=== PATIENT | female | born 1995 | race Caucasian/White ===

== ENCOUNTER 2024-02-17 18:01 | Emergency (ER) | payer OTHER, SELFPAY ==
[2024-02-17 18:29] VITALS: BP 125/81; PULSE 106; TEMP 36.8; O2SAT 97; BMI 22.1
--- NOTE | 2024-02-17 19:08 | US_ITS ---
[facility] [id number] Patient Name: DOE FERNANDEZ MRN: [id number] date: 1995 Sex: F Assigned Patient Location: ER Current Patient Location: ED.MAIN Accession/Order Number: [id number] Exam Date: 02/17/2024 19:30 Report Date: 02/17/2024 22:31 At the request of: CHANTELLE OWENS Procedure: US pelvis transvaginal EXAM: US pelvis transvaginal HISTORY: retained products COMPARISON: None. TECHNIQUE: Transvaginal and transabdominal real-time grayscale and color Doppler imaging with pulsed duplex sonography was performed. FINDINGS: UTERUS: Measures 10.1 centimeters in length. Anteverted ENDOMETRIUM: There is a heterogeneous rounded component of the endometrium which measures which measures 3.6 by 2.5 by 3.4 centimeters. Remainder of endometrium appears mildly thickened and hypervascular. OVARIES: The right ovary demonstrates a cyst measuring up to 3.8 centimeters. Right ovary measures 4.2 by 4.7 by 4.3 cm. Left ovary measures 2.2 by 1.6 by 1.9 cm. Ovaries demonstrate color Doppler flow and appropriate spectral waveforms. MISCELLANEOUS: No significant free fluid. US/US pelvis transvaginal IMPRESSION: Findings suggesting retained products of conception. Electronically authenticated by: CHRIS MICHAELS Date: 02/17/2024 22:31
[2024-02-17 19:53] LABS: Basophils Absolute Auto 0.1 10^3/uL (0.0-0.1); Basophils Percent Auto 0.8 % (0.2-2.0); Eosinophils Absolute Auto 0.2 10^3/uL (0.0-0.7); Eosinophils Percent Auto 2.7 % (0.9-7.0); Hematocrit 36.4 % (36.0-48.0); Hemoglobin 12.3 g/dL (12.0-16.0); Immature Granulocytes Abs Auto 0.02 10^3/uL (0.00-0.03); Immature Granulocytes Pct Auto 0.3 % (0.0-0.5); Lymphocytes Absolute Auto 3.2 10^3/uL (1.2-3.8); Lymphocytes Percent Auto 40.1 % (20.5-60.0); Mean Corpuscular HGB Conc 33.8 g/dL (29.9-35.2); Mean Corpuscular Hemoglobin 32.5 pg (26.7-34.0); Mean Platelet Volume 11.1 fL (9.5-13.5); Monocytes Absolute Auto 0.5 10^3/uL (0.3-0.8); Monocytes Percent Auto 6.7 % (1.7-12.0); Neutrophils Absolute Auto 3.9 10^3/uL (1.4-6.5); Neutrophils Percent Auto 49.4 % (43.0-75.0); Platelet Count 259 10^3/uL (150-450); Red Blood Count 3.79 10^6/uL (4.20-5.40); Red Cell Distribution Width 12.6 % (11.0-15.0); White Blood Count 7.9 10^3/uL (4.0-11.0)
[2024-02-17 20:09] LABS: Anion Gap 16.9; BUN Creatinine Ratio 18.9; Calcium 8.4 mg/dL (8.5-10.1); Carbon Dioxide 21.9 mmol/L (21.0-32.0); Chloride 106 mmol/L (98-107); Estimated GFR (African America >60 (>=60 mL/min/1.73m^2); Estimated GFR (Non-African Ame >60 (>=60 mL/min/1.73m^2); Glucose 97 mg/dL (74-106); Potassium 3.8 mmol/L (3.5-5.1); Sodium 141 mmol/L (136-145)
[2024-02-17 20:17] LABS: Prothrombin Time 10.6 sec (9.0-11.6)
--- NOTE | 2024-02-17 21:21 | ED_ITS ---
Documented by User: Florecita Mcfarland 02/17/24 21:58 HPI - General Chief complaint: Vaginal Bleeding Stated complaint: BLEEDING Time Seen by Provider: 02/17/24 18:08 Source: patient Mode of arrival: walk-in History of Present Illness HPI Narrative: 88-year-old female who is approximately 3 weeks presents today with vaginal bleeding. Patient states she has had small amount of bleeding since given . She had a vaginal with episiotomy. She states she had 20 sutures she states. She states today she passed a large clot of blood and has been bleeding. She is alert and oriented. No acute distress. No fevers. Blood pressure is within normal limits MD Complaint: Reports vaginal bleeding Related Data Home Medications ?Medication ?Instructions ?Recorded ?Confirmed docusate sodium 100 mg capsule mg PO 02/17/24 (Stool Softener) duloxetine 60 mg capsule,delayed mg PO 02/17/24 release ferrous sulfate 325 mg (65 mg mg 02/17/24 iron) tablet hydroxyzine pamoate 25 mg capsule mg 02/17/24 vits no.130-ferrous fum tab 02/17/24 27 mg iron-folic acid 800 mcg tablet ( Vitamin) Allergies Allergy/AdvReac Type Severity Reaction Status Date / Time No Known Drug Allergies Allergy Verified 02/17/24 18:29 Review of Systems ROS Narrative All Systems are negative except as noted/marked.All systems reviewed and otherwise negative PFSH PFSH Social History Little interest or pleasure in doing things: not at all Feeling down, depressed, or hopeless: several days Exam Narrative Exam Narrative: Nurses note and vital signs reviewed and patient is not hypoxic. General: The patient appears well and in no apparent distress. Patient is re sting comfortably on cart. Skin: Warm, dry, no pallor noted. There is no rash noted. Head: Normocephalic, atraumatic Eye: Normal conjunctiva, no drainage, EOMI. PERRL Ears, Nose, Mouth, and Throat: oral mucosa is moist. Nares patent. Mouth without vesicles. Ear canals patent. Tm's without Erythema Cardiovascular: Regular Rate and Rhythm Respiratory: Patient is in no distress, no accessory muscle use, lungs are clear to auscultation, no wheezing, rales or rhonchi Back: non-tender, no CVA tenderness bilaterally to percussion. GI: Normal bowel sounds, no tenderness to palpation, no masses appreciated. No rebound, guarding, or rigidity noted. gu: Vaginal bleeding noted on exam, no clotting noted, no profuse bleeding Musculoskeletal: The patient has no evidence of calf tenderness, no pitting edema, symmetrical pulses noted bilaterally Neurological: A&O x4, normal speech Psychiatric: Cooperative Constitutional Vital Signs, click to edit/add: Last Vital Signs Temp 97.9 F 02/17/24 22:05 Pulse 93 H 02/17/24 22:05 Resp 16 02/17/24 22:05 BP 97/71 02/17/24 22:05 Pulse Ox 100 02/17/24 22:05 O2 Del Method Room Air 02/17/24 22:05 Course Vital Signs Vital signs: Vital Signs Temperature 98.3 F 02/17/24 18:29 Pulse Rate 106 H 02/17/24 18:29 Respiratory Rate 16 02/17/24 18:29 Blood Pressure 125/81 02/17/24 18:29 Pulse Oximetry 97 02/17/24 18:29 Oxygen Delivery Method Room Air 02/17/24 18:29 Temperature 97.9 F 02/17/24 22:05 Pulse Rate 93 H 02/17/24 22:05 Respiratory Rate 16 02/17/24 22:05 Blood Pressure 97/71 02/17/24 22:05 Pulse Oximetry 100 02/17/24 22:05 Oxygen Delivery Method Room Air 02/17/24 22:05 MDM - OB/Uterine Contractions MDM Narrative Medical decision making narrative: 28-year-old female present here chief complaint abdominal cramping and bleeding. She is 3 weeks . Vaginal exam is within normal limits small amount of bleeding is noted no profuse pulsatile bleeding or clotting CBC and BMP within normal limits. Ultrasound is currently pending for retained products. Transition of care to Dr. Bernal [id number]. pt comfortable at this time Medical Records Attestation: I reviewed the patient's medical records. Lab Data Attestation: I reviewed the patient's lab results. Labs: Lab Results 02/17/24 Range/Units 19:25 WBC 7.9 (4.0-11.0) 10^3/uL RBC 3.79 L (4.20-5.40) 10^6/uL Hgb 12.3 (12.0-16.0) g/dL Hct 36.4 (36.0-48.0) % MCV 96.0 (81.0-99.0) fL MCH 32.5 (26.7-34.0) pg MCHC 33.8 (29.9-35.2) g/dL RDW 12.6 (11.0-15.0) % Plt Count 259 (150-450) 10^3/uL MPV 11.1 (9.5-13.5) fL Neut % (Auto) 49.4 (43.0-75.0) % Lymph % (Auto) 40.1 (20.5-60.0) % [place] % (Auto) 6.7 (1.7-12.0) % Eos % (Auto) 2.7 (0.9-7.0) % Baso % (Auto) 0.8 (0.2-2.0) % Neut # (Auto) 3.9 (1.4-6.5) 10^3/uL Lymph # (Auto) 3.2 (1.2-3.8) 10^3/uL [place] # (Auto) 0.5 (0.3-0.8) 10^3/uL Eos # (Auto) 0.2 (0.0-0.7) 10^3/uL Baso # (Auto) 0.1 (0.0-0.1) 10^3/uL Abs Immat Gran (auto) 0.02 (0.00-0.03) 10^3/uL Imm/Tot Granulo (auto) 0.3 (0.0-0.5) % PT 10.6 (9.0-11.6) sec INR 1.00 Sodium 141 (136-145) mmol/L Potassium 3.8 (3.5-5.1) mmol/L Chloride 106 (98-107) mmol/L Carbon Dioxide 21.9 (21.0-32.0) mmol/L Anion Gap 16.9 BUN 14.0 (7.0-18.0) mg/dL Creatinine 0.74 (0.55-1.02) mg/dL Est GFR ( Amer) >60 (>=60 mL/min/1.73m^2) Est GFR (Non-Af Amer) >60 (>=60 mL/min/1.73m^2) BUN/Creatinine Ratio 18.9 Glucose 97 (74-106) mg/dL Calcium 8.4 L (8.5-10.1) mg/dL Discharge Plan Discharge Chief Complaint: Vaginal Bleeding Clinical Impression: bleeding, Retained products of conception Patient Disposition: Home, Self-Care Condition: Good Prescriptions / Home Meds: No Action ferrous sulfate 325 mg (65 mg iron) tablet docusate sodium [Stool Softener] 100 mg capsule PO hydroxyzine pamoate 25 mg capsule duloxetine 60 mg capsule,delayed release(DR/EC) PO Vitamin 27 mg iron- 800 mcg tablet Print Language: Portuguese Instructions: Bleeding (ED) Additional Instructions: tile picker prescription called in by your outreach associate tomorrow and follow up with her next week Referrals: [facility] [Primary Care Provider] - 1 week Documented by User: Hesham Bernal MD 02/17/24 23:36 HPI - General Chief complaint: Vaginal Bleeding Stated complaint: BLEEDING Time Seen by Provider: 02/17/24 18:08 Related Data Home Medications ?Medication ?Instructions ?Recorded ?Confirmed docusate sodium 100 mg capsule mg PO 02/17/24 (Stool Softener) duloxetine 60 mg capsule,delayed mg PO 02/17/24 release ferrous sulfate 325 mg (65 mg mg 02/17/24 iron) tablet hydroxyzine pamoate 25 mg capsule mg 02/17/24 vits no.130-ferrous fum tab 02/17/24 27 mg iron-folic acid 800 mcg tablet ( Vitamin) Allergies Allergy/AdvReac Type Severity Reaction Status Date / Time No Known Drug Allergies Allergy Verified 02/17/24 18:29 PFSH PFSH Social History Little interest or pleasure in doing things: not at all Feeling down, depressed, or hopeless: several days Exam Constitutional Vital Signs, click to edit/add: Last Vital Signs Temp 97.9 F 02/17/24 22:05 Pulse 93 H 02/17/24 22:05 Resp 16 02/17/24 22:05 BP 97/71 02/17/24 22:05 Pulse Ox 100 02/17/24 22:05 O2 Del Method Room Air 02/17/24 22:05 Course Vital Signs Vital signs: Vital Signs Temperature 98.3 F 02/17/24 18:29 Pulse Rate 106 H 02/17/24 18:29 Respiratory Rate 16 02/17/24 18:29 Blood Pressure 125/81 02/17/24 18:29 Pulse Oximetry 97 02/17/24 18:29 Oxygen Delivery Method Room Air 02/17/24 18:29 Temperature 97.9 F 02/17/24 22:05 Pulse Rate 93 H 02/17/24 22:05 Respiratory Rate 16 02/17/24 22:05 Blood Pressure 97/71 02/17/24 22:05 Pulse Oximetry 100 02/17/24 22:05 Oxygen Delivery Method Room Air 02/17/24 22:05 MDM - OB/Uterine Contractions MDM Narrative Medical decision making narrative: 28-year-old female present here chief complaint abdominal cramping and bleeding. She is 3 weeks . Vaginal exam is within normal limits small amount of bleeding is noted no profuse pulsatile bleeding or clotting CBC and BMP within normal limits. Ultrasound is currently pending for retained products. Transition of care to Dr. Bernal [id number]. pt comfortable at this time care transferred. US pending. US returned with findings of retained products of conception. Discussed with patient outreach associate who recommended a dose of Methergine now and she will call in Cytotec for the patient to start tomorrow. Bleeding has stop. Patient informed of the plan and discharged home Lab Data Labs: Lab Results 02/17/24 Range/Units 19:25 WBC 7.9 (4.0-11.0) 10^3/uL RBC 3.79 L (4.20-5.40) 10^6/uL Hgb 12.3 (12.0-16.0) g/dL Hct 36.4 (36.0-48.0) % MCV 96.0 (81.0-99.0) fL MCH 32.5 (26.7-34.0) pg MCHC 33.8 (29.9-35.2) g/dL RDW 12.6 (11.0-15.0) % Plt Count 259 (150-450) 10^3/uL MPV 11.1 (9.5-13.5) fL Neut % (Auto) 49.4 (43.0-75.0) % Lymph % (Auto) 40.1 (20.5-60.0) % [place] % (Auto) 6.7 (1.7-12.0) % Eos % (Auto) 2.7 (0.9-7.0) % Baso % (Auto) 0.8 (0.2-2.0) % Neut # (Auto) 3.9 (1.4-6.5) 10^3/uL Lymph # (Auto) 3.2 (1.2-3.8) 10^3/uL [place] # (Auto) 0.5 (0.3-0.8) 10^3/uL Eos # (Auto) 0.2 (0.0-0.7) 10^3/uL Baso # (Auto) 0.1 (0.0-0.1) 10^3/uL Abs Immat Gran (auto) 0.02 (0.00-0.03) 10^3/uL Imm/Tot Granulo (auto) 0.3 (0.0-0.5) % PT 10.6 (9.0-11.6) sec INR 1.00 Sodium 141 (136-145) mmol/L Potassium 3.8 (3.5-5.1) mmol/L Chloride 106 (98-107) mmol/L Carbon Dioxide 21.9 (21.0-32.0) mmol/L Anion Gap 16.9 BUN 14.0 (7.0-18.0) mg/dL Creatinine 0.74 (0.55-1.02) mg/dL Est GFR ( Amer) >60 (>=60 mL/min/1.73m^2) Est GFR (Non-Af Amer) >60 (>=60 mL/min/1.73m^2) BUN/Creatinine Ratio 18.9 Glucose 97 (74-106) mg/dL Calcium 8.4 L (8.5-10.1) mg/dL Discharge Plan Discharge Chief Complaint: Vaginal Bleeding Clinical Impression: bleeding, Retained products of conception Patient Disposition: Home, Self-Care Condition: Good Prescriptions / Home Meds: No Action ferrous sulfate 325 mg (65 mg iron) tablet docusate sodium [Stool Softener] 100 mg capsule PO hydroxyzine pamoate 25 mg capsule duloxetine 60 mg capsule,delayed release(DR/EC) PO Vitamin 27 mg iron- 800 mcg tablet Print Language: Portuguese Instructions: Bleeding (ED) Additional Instructions: tile picker prescription called in by your outreach associate tomorrow and follow up with her next week Referrals: [facility] [Primary Care Provider] - 1 week
[2024-02-17 22:05] VITALS: BP 97/71; PULSE 93; TEMP 36.6; O2SAT 100
[2024-02-18] MEDS: METHYLERGONOVINE MALEATE 0.2 MG TABLET PO (00:01)
== END 2024-02-18 00:02 | disposition home or self-care (01) ==
PROVIDERS: Physician Assistant; Emergency Provider Internal Medicine
DX: O72.2 Delayed and secondary postpartum hemorrhage (principal)
CPT/HCPCS: 36415; 76830; 80048; 85025; 85610; 99284